=== PATIENT | male | born 1965 ===

== ENCOUNTER 2025-04-22 06:41 | Emergency (ER) | payer OTHER ==
[~2025-04-22] VITALS: Ht 190.5 cm; Wt 105.5 kg
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
[2025-04-22] MEDS: ACETAMINOPHEN 325 MG TAB PO ONE (08:40)
[2025-04-22 08:43] VITALS: BP 150/72; PULSE 60; RESP 16; TEMP 97.8; O2SAT 100
== END 2025-04-22 09:42 | disposition home or self-care (01) ==
LOC: ER 06:41
DX: S46.911A Strain of unspecified muscle, fascia and tendon at shoulder and upper arm level, right arm, initial encounter (principal); S29.011A Strain of muscle and tendon of front wall of thorax, initial encounter; V89.2XXA Person injured in unspecified motor-vehicle accident, traffic, initial encounter; Y93.89 Activity, other specified; Y92.89 Other specified places as the place of occurrence of the external cause; Y99.8 Other external cause status
CPT/HCPCS: 71045; 72170